=== PATIENT | female | born 1985 | race Caucasian/White ===

== ENCOUNTER 2020-06-05 09:51 | Inpatient (IN) | payer BC, SELFPAY ==
--- NOTE | 2020-05-09 13:07 | PC.NURSE ---
VERIFIED WITH OR SCHEDULE AND PATIENT --C/S ON 06/05/20 AT 1200 PATIENT INSTRUCTED TO BE IN OB AT 10 AM SO LABS CAN BE DRAWN BEFORE SURGERY
--- NOTE | 2020-06-01 14:05 | HP_ITS ---
DATE OF SERVICE: 06/05/2020 Surgery is scheduled for June 05. HISTORY OF PRESENT ILLNESS: The patient is 35-year-old G2, P1-0-0-1 at 39 weeks and 2 days gestation with a history of prior , who is coming in for an elective repeat . Her has been uncomplicated. She has occasional contractions. No vaginal bleeding. No leakage of fluid and is feeling normal movement. MEDICAL HISTORY: Negative. CURRENT MEDICATIONS: vitamin. ALLERGIES: NO KNOWN DRUG ALLERGIES. SURGICAL HISTORY: Low-transverse x1. Baby weighed 8 pounds 10 ounces. SOCIAL HISTORY: Negative for tobacco, alcohol, or drug use. GYNECOLOGIC HISTORY: Negative for abnormal Pap or STD. REVIEW OF SYSTEMS: Negative. PHYSICAL EXAMINATION: VITAL SIGNS: She weighs 188, blood pressure 117/72. GENERAL: No apparent distress. HEART: Regular rate and rhythm. LUNGS: Clear to auscultation. ABDOMEN: Gravid, soft, nontender, nondistended. EXTREMITIES: Nontender with trace edema. ASSESSMENT AND PLAN: 1. G2, P1-0-0-1 at 39 weeks and 2 days with history of prior and declines trial of labor and wants a repeat , so plan is for repeat . 2. status is reassuring. 3. GBS is negative. 4. Advanced maternal age. She did have a normal NIPT showing a female fetus with normal chromosome analysis. D I MT: Kan
[2020-06-05] VITALS (44 sets, daily range): BP systolic 93–119; BP diastolic 39–64; PULSE 46–147; RESP 12–18; TEMP 36.2–36.9; O2SAT 82–100; BMI 31.4
[2020-06-05 10:57] LABS: Basophils Absolute Auto 0.1 K/mm3 (0.0-0.1); Basophils Percent Auto 0.5 % (0.2-1.2); Eosinophils Absolute Auto 0.1 K/mm3 (0-0.3); Eosinophils Percent Auto 0.5 % (0-4.4); Hematocrit 34.5 % (37.0-47.0); Hemoglobin 11.6 g/dL (12.0-15.0); Immature Granulocyte Absolute 0.08 K/mm3 (0.00-0.031); Immature Granulocyte Percent A 0.6 % (0-0.5); Lymphocytes Absolute Auto 2.62 K/mm3 (0.9-3.2); Lymphocytes Percent Auto 20.3 % (18.3-44.2); Mean Corpuscular HGB Conc 33.6 g/dl (32-36); Mean Corpuscular Hemoglobin 30.1 pg (26-34); Mean Corpuscular Volume 89.6 fl (80-100); Mean Platelet Volume 10.4 fl (7.4-10.4); Monocytes Absolute Auto 1.1 K/mm3 (0.1-0.6); Monocytes Percent Auto 8.3 % (2.6-8.5); Neutrophils Percent Auto 69.8 % (45.5-73.1); Platelet Count Result 320 k/mm3 (150-375); Red Blood Count 3.85 M/mm3 (4.2-5.4); White Blood Count 12.9 K/mm3 (4.5-10.0)
[2020-06-05] MEDS: LACTATED RINGERS 1,000 ML 125 ML IV CONT ×2 (10:59→11:39)
--- NOTE | 2020-06-05 11:23 | WPDANESEPPF ---
Anes - Initial Pre Proc Eval Procedure: Operation Date: 06/05/20 12:00 Proposed Procedures p Repeat Section - Alma Rosa Salgado MD Date/Time: 06/05/20 11:23 Surgeon: Alma Rosa Salgado MD Pre Op Diagnosis: Repeat Patient Data Age: 35 Gender: F Height: 5 ft 4 in Weight: 83 kg Last Vital Signs Pulse 68 06/05/20 11:11 BP 119/60 06/05/20 11:11 Allergies Allergy/AdvReac Type Severity Reaction Status Date / Time No Known Allergies Allergy Unknown Verified 05/09/20 12:46 Home Medications Medication Instructions Recorded Confirmed Type PNV cmb#95-ferrous fumarate-FA 1 tablet PO DAILY 05/09/20 05/09/20 History [] Laboratory Tests 06/05/20 06/05/20 10:49 10:49 WBC 12.9 K/mm3 H K/mm3 (4.5-10.0) RBC 3.85 M/mm3 L M/mm3 (4.2-5.4) Hgb 11.6 g/dL L g/dL (12.0-15.0) Hct 34.5 % L % (37.0-47.0) MCV 89.6 fl fl (80-100) MCH 30.1 pg pg (26-34) MCHC 33.6 g/dl g/dl (32-36) RDW 13.0 % % (11.5-14.5) Plt Count 320 k/mm3 k/mm3 (150-375) MPV 10.4 fl fl (7.4-10.4) Immature Gran % (Auto) 0.6 % H % (0-0.5) Neut % (Auto) 69.8 % % (45.5-73.1) Lymph % (Auto) 20.3 % % (18.3-44.2) [place] % (Auto) 8.3 % % (2.6-8.5) Eos % (Auto) 0.5 % % (0-4.4) Baso % (Auto) 0.5 % % (0.2-1.2) Lymph # (Auto) 2.62 K/mm3 K/mm3 (0.9-3.2) [place] # (Auto) 1.1 K/mm3 H K/mm3 (0.1-0.6) Eos # (Auto) 0.1 K/mm3 K/mm3 (0-0.3) Baso # (Auto) 0.1 K/mm3 K/mm3 (0.0-0.1) Abs Immat Gran (auto) 0.08 K/mm3 H K/mm3 (0.00-0.031) Absolute Neuts (auto) 9.0 K/mm3 H K/mm3 (1.3-6.7) Absolute Nucleated RBC 0.0 K/mm3 K/mm3 (0.0-0.012) Nucleated RBC % 0.0 % % (0.0-0.2) RPR Pending Patient hx anesthesia problems: none Family hx anesthesia problems: none PMFSH Family History Family History Mother Hypertension Diabetes mellitus Grandparent Diabetes mellitus Social History Social History Smoking status: Never smoker Second hand tobacco smoke exposure: Yes Substance use: never Spiritual care concerns: No Anes - Eval Final PreProcedure Day of Procedure 06/05/20 11:23 Patient weight: overweight Heart: regular rate and rhythm Lungs: clear to auscultation Airway: Mallampati scale class II Neurological: alert and oriented Last oral intake: >/= 8 hours ASA classification: II Emergent: no Anesthetic plan: proceed Anesthesia type and monitoring: regional spinal and standard monitoring Informed Consent: The patient's anesthetic plan and its attendant risks and benefits were discussed with the patient/family/POA. Questions were solicited and answers provided to the satisfaction of the patient/family/POA.
[2020-06-05] MEDS: ceFAZolin 2 GM/D5W 50 ML 2 GM/50 ML BAG IVPB (11:42)
--- NOTE | 2020-06-05 11:53 | WPDHPUPDATE1 ---
History and Physical Update Update Date/Time: 06/05/20 11:53 History and Physical has been reviewed, including an updated exam of the patient. There are NO changes in the patient's condition. Risks, benefits, and alternatives have been discussed and questions answered. Patient agrees to proceed with procedure.
--- NOTE | 2020-06-05 12:48 | PM.OP ---
Procedure Note - Brief Procedure Note - Brief Date of procedure: 06/05/20 Pre-op diagnosis: Repeat Post-op diagnosis: same Procedure performed: Repeat LTCS Anesthesia: spinal Surgeon: Alma Rosa Salgado MD Estimated blood loss (mL): 200 Drains: Yes (Root) Packing: No Pathology: none sent Complications: No immediate complications Condition: stable Disposition: PACU Findings: Female infant, cephalic, Apgars 8/9, 7# 8 oz; normal uterus, tubes, ovaries
[2020-06-05] MEDS: OXYTOCIN 30 UNITS/NS 500 ML 30 UNITS/500 ML BAG 125 UNITS IV CONT (13:43)
[2020-06-05] MEDS: KETOROLAC 30 MG/ML VIAL (*BKC) IV PUSH ×2 (16:14→22:27)
--- NOTE | 2020-06-05 18:03 | OP_ITS ---
DATE OF PROCEDURE: 06/05/2020 PREOPERATIVE DIAGNOSIS: Intrauterine at 39 weeks and 2 days with history of prior . POSTOPERATIVE DIAGNOSES: Intrauterine at 39 weeks and 2 days with history of prior . PROCEDURE PERFORMED: Repeat low transverse section. ANESTHESIA: Spinal. ESTIMATED BLOOD LOSS: 200 mL. COMPLICATIONS: None. FINDINGS: Female , cephalic presentation. Apgars 8 and 9. Weight 7 pounds 8 ounces. Normal uterus, tubes, and ovaries. INDICATIONS: A 35-year-old, G2, P1, at 39 weeks and 2 days gestation with history of prior , had expressed a desire throughout her for repeat and had signed consent after the risks, benefits, complications, and alternatives were discussed. DESCRIPTION OF PROCEDURE: She was taken to the operating room where spinal anesthesia was obtained and found to be adequate. She was prepared and draped in the normal sterile fashion in the dorsal supine position with a leftward tilt. A Pfannenstiel skin incision was made over her prior incision, excising elliptical fashion and the incision was carried down to the underlying layer of fascia with the scalpel. The fascia was incised in the midline with scalpel and extended laterally with Cullen scissors. The underlying rectus muscles were dissected off bluntly and sharply. Rectus muscles were in the midline. The peritoneum was entered bluntly and extended inferiorly and superiorly with good visualization of the bladder. The bladder blade was inserted. The vesicouterine peritoneum was tented up and entered sharply with Metzenbaum and extended sharply. The bladder flap was created sharply. The bladder blade was reinserted. The lower uterine segment was incised in a transverse fashion with scalpel and digitally stretched in a cephalocaudad direction. The membranes were ruptured with clear fluid noted. The infant's head was delivered atraumatically. The shoulders and body were delivered easily. The cord was clamped x2 and cut. The was passed to the awaiting nurse. Cord gas and cord blood were obtained. The placenta was manually extracted. The uterus was exteriorized and cleared of all clots and debris. The uterine incision was closed in 0 Vicryl in a running locked fashion. Incision was hemostatic, so the uterus was returned to the abdomen. The gutters were cleared of all clots and debris. The uterine incision was reinspected and noted to be hemostatic. The rectus muscles were reapproximated in the midline using [id number] 0 Vicryl suture. The fascia was then closed using 0 Vicryl in a running fashion. Subcutaneous tissue was irrigated. All bleeding points were cauterized and the skin was closed using Insorb absorbable maria teresa. She tolerated the procedure well. Sponge, lap, needle, and instrument counts were correct x2 and she was taken to the recovery room in stable condition. Mayra I MT: Kan
[2020-06-05] MEDS: ONDANSETRON INJ 4 MG/2 ML VIAL IV PUSH (19:00)
[2020-06-05] MEDS: DEXTROSE 5%/0.45% SOD CHL 1,000 ML 125 ML IV CONT (19:11)
[2020-06-06] MEDS: TETANUS,DIPHTHERIA,AC PERTUSSIS ADULT (0.5 ML) BOOSTRIX IM (04:08)
[2020-06-06 04:20] VITALS: BP 86/46; PULSE 72; RESP 13; TEMP 36.9; O2SAT 96
[2020-06-06 05:09] LABS: Basophils Percent Auto 0.3 % (0.2-1.2); Eosinophils Absolute Auto 0.1 K/mm3 (0-0.3); Eosinophils Percent Auto 0.7 % (0-4.4); Hematocrit 33.7 % (37.0-47.0); Hemoglobin 11.1 g/dL (12.0-15.0); Immature Granulocyte Absolute 0.07 K/mm3 (0.00-0.031); Immature Granulocyte Percent A 0.5 % (0-0.5); Lymphocytes Absolute Auto 2.25 K/mm3 (0.9-3.2); Lymphocytes Percent Auto 15.6 % (18.3-44.2); Mean Corpuscular HGB Conc 32.9 g/dl (32-36); Mean Corpuscular Hemoglobin 29.7 pg (26-34); Mean Corpuscular Volume 90.1 fl (80-100); Mean Platelet Volume 10.4 fl (7.4-10.4); Monocytes Absolute Auto 0.8 K/mm3 (0.1-0.6); Monocytes Percent Auto 5.8 % (2.6-8.5); Neutrophils Absolute Auto 11.1 K/mm3 (1.3-6.7); Neutrophils Percent Auto 77.1 % (45.5-73.1); Platelet Count Result 252 k/mm3 (150-375); Red Blood Count 3.74 M/mm3 (4.2-5.4); White Blood Count 14.4 K/mm3 (4.5-10.0)
[2020-06-06] MEDS: MULTIVIT/MIN/PREN/FOL AC/IRON TABLET 1 TAB PO (07:24)
[2020-06-06] MEDS: IBUPROFEN 600 MG TABLET PO ×3 (07:24→19:30)
[2020-06-06] MEDS: DOCUSATE SODIUM 100 MG CAPSULE PO ×2 (07:24→15:54)
[2020-06-06 07:25] LABS: Rapid Plasma Reagin Non-Reactive (NonReactive)
--- NOTE | 2020-06-06 07:32 | PM.OBPNVD ---
OB - PN: Subj Subjective Date/time seen: 06/06/20 07:32 Patient comments: no complaints baby status: doing well OB - PN: Obj Data Labs CBC & Chem 7: 06/06/20 04:06 Labs: Laboratory Results - last 24 hr 06/05/20 06/05/20 06/05/20 10:49 10:49 10:49 WBC 12.9 H RBC 3.85 L Hgb 11.6 L Hct 34.5 L MCV 89.6 MCH 30.1 MCHC 33.6 RDW 13.0 Plt Count 320 MPV 10.4 Immature Gran % (Auto) 0.6 H Neut % (Auto) 69.8 Lymph % (Auto) 20.3 [place] % (Auto) 8.3 Eos % (Auto) 0.5 Baso % (Auto) 0.5 Lymph # (Auto) 2.62 [place] # (Auto) 1.1 H Eos # (Auto) 0.1 Baso # (Auto) 0.1 Abs Immat Gran (auto) 0.08 H Absolute Neuts (auto) 9.0 H Absolute Nucleated RBC 0.0 Nucleated RBC % 0.0 RPR Non-reactive Blood Type A Positive Antibody Screen Negative 06/06/20 04:06 WBC 14.4 H RBC 3.74 L Hgb 11.1 L Hct 33.7 L MCV 90.1 MCH 29.7 MCHC 32.9 RDW 13.0 Plt Count 252 MPV 10.4 Immature Gran % (Auto) 0.5 Neut % (Auto) 77.1 H Lymph % (Auto) 15.6 L [place] % (Auto) 5.8 Eos % (Auto) 0.7 Baso % (Auto) 0.3 Lymph # (Auto) 2.25 [place] # (Auto) 0.8 H Eos # (Auto) 0.1 Baso # (Auto) 0.0 Abs Immat Gran (auto) 0.07 H Absolute Neuts (auto) 11.1 H Absolute Nucleated RBC 0.0 Nucleated RBC % 0.0 RPR Blood Type Antibody Screen OB - PN A/P Plan day: 1 Plan: discharge home Time Spent With Patient Time: Total time spent is greater than 50% in coordination of care (as documented) at patient's floor/unit and/or counseling patient: Review of Systems Review of Systems: All systems reviewed & are unremarkable except as noted in HPI and below Exam Const: General: comfortable Resp: Effort & Inspection: normal respiratory effort Psych: Appearance: grossly normal Affect: normal affect Attitude: cooperative Judgement: Good judgement present (Psych)
[2020-06-06 07:40] VITALS: BP 93/49; PULSE 66; RESP 18; TEMP 37.3; O2SAT 98
--- NOTE | 2020-06-06 07:47 | WPDANLDPN2 ---
Anes-Prog Note L&D Date/Time: 06/06/20 07:47 Comfortable throughout: section Neuraxial method: spinal Epidural/Spinal procedure site: clean & non-tender Neuro status: Neuro function grossly intact. Cardiovascular status: normal Respiratory status: normal Airway patency: baseline Mental status: baseline Post-Op hydration status: normal Vital Signs: Last Vital Signs Temp 36.9 C 06/06/20 04:20 Pulse 72 06/06/20 04:20 Resp 13 06/06/20 04:20 BP 86/46 L 06/06/20 04:20 Pulse Ox 96 06/06/20 04:20 I/O: Intake & Output 06/05/20 06/05/20 06/06/20 15:59 23:59 07:59 Intake Total 1850 350 Output Total 300 1250 1000 Balance 1550 -900 -1000 Post-procedural complaints: none Patient feedback: Patient satisfied with anesthetic care.
--- NOTE | 2020-06-06 07:47 | WPDANLDNPN2 ---
Anes-Prog Note L&D-Neuraxial Date/Time: 06/06/20 07:47 Neuraxial medications: intrathecal PF morphine Opiod-related complaints: none Patient feedback: Patient satisfied with post-operative pain management.
--- NOTE | 2020-06-06 08:23 | PC.NURSE ---
Mother verbalizes she is able to independently latch with appropriate positioning/alignment. She denies any nipple discomfort, is feeding as required and waking to feed if needed. Infant is currently meeting outcomes for weight, output, jaundice and feeding frequencies. Mother states she does not require feeding assist/education at this time. Reviewed resources in the Mom/Baby guide. Instructed mother to call out for future feedings if assistance is needed.
[2020-06-06 12:20] VITALS: BP 98/46; PULSE 64; RESP 18; TEMP 37.1; O2SAT 97
[2020-06-06] MEDS: LANOLIN (LANSINOH) 7.5 GM CREAM 1 APPLIC TOPICAL (15:54)
[2020-06-06] MEDS: SIMETHICONE 80 MG TAB.CHEW PO (15:54)
[2020-06-06 19:40] VITALS: BP 106/48; PULSE 72; RESP 13; TEMP 36.6; O2SAT 98
[2020-06-07] MEDS: IBUPROFEN 600 MG TABLET PO ×4 (02:44→21:30)
--- NOTE | 2020-06-07 07:41 | PM.OBPNVD ---
OB - PN: Subj Subjective Date/time seen: 06/07/20 07:41 Patient comments: no complaints, pain well controlled, tolerating diet, flatus present and other (Ambulating and voiding without problems. Lochia similar to menses) baby status: doing well OB - PN: Obj Data Labs CBC & Chem 7: 06/06/20 04:06 OB - PN A/P Plan day: 2 (s/p C section, doing well) Plan: routine care Time Spent With Patient Time: Total time spent is greater than 50% in coordination of care (as documented) at patient's floor/unit and/or counseling patient: Exam Const: General: no acute distress Resp: Auscultation: clear to auscultation bilaterally Cardio: Rate: regular rate Rhythm: regular rhythm GI: Inspection: non-distended, incision (Intact without erythema, drainage, or induration) and other (Fundus firm and nontender below umbilicus) GI Palp: Yes abdominal tenderness (appropriate) and Yes Soft to palpation Extrem: General: no edema
[2020-06-07 08:20] VITALS: BP 98/50; PULSE 69; RESP 18; TEMP 36.8; O2SAT 99
[2020-06-07] MEDS: MULTIVIT/MIN/PREN/FOL AC/IRON TABLET 1 TAB PO (09:07)
[2020-06-07] MEDS: DOCUSATE SODIUM 100 MG CAPSULE PO ×2 (09:07→15:53)
[2020-06-07 16:40] VITALS: PULSE 67; O2SAT 97
[2020-06-07 21:30] VITALS: BP 111/51; PULSE 64; RESP 15; TEMP 36.7; O2SAT 99
[2020-06-08] MEDS: IBUPROFEN 600 MG TABLET PO (03:58)
--- NOTE | 2020-06-08 07:38 | PM.OBPNVD ---
OB - PN: Subj Subjective Date/time seen: 06/08/20 07:38 Patient comments: no complaints, pain well controlled, tolerating diet, flatus present and other (Lochia less than menses. Ambulating and voiding without problems) baby status: doing well OB - PN: Obj Data Labs CBC & Chem 7: 06/06/20 04:06 OB - PN A/P Plan day: 3 (s/p section, doing well and ready to be discharged home) Plan: routine care, discharge home and other (Follow up in office in 1 week) Time Spent With Patient Time: Total time spent is greater than 50% in coordination of care (as documented) at patient's floor/unit and/or counseling patient: Exam Const: General: no acute distress Resp: Auscultation: clear to auscultation bilaterally Cardio: Rate: regular rate Rhythm: regular rhythm GI: Inspection: non-distended, incision (Intact without erythema, drainage, or induration) and other (Fundus firm and nontender below umbilicus) GI Palp: Yes abdominal tenderness (appropriate) and Yes Soft to palpation Extrem: General: no edema
[2020-06-08] MEDS: MULTIVIT/MIN/PREN/FOL AC/IRON TABLET 1 TAB PO (07:56)
[2020-06-08] MEDS: DOCUSATE SODIUM 100 MG CAPSULE PO (07:56)
--- NOTE | 2020-06-08 08:00 | PC.NURSE ---
Patient instructed on viewing the discharge video Mother & Baby Care, The First Two Weeks . Patient was given the opportunity and encouraged to ask questions. Patient verbalized understanding of information shared and has been given the mother/baby guide for home reference.
[2020-06-08 09:25] VITALS: BP 103/49; PULSE 62; RESP 16; TEMP 36.7; O2SAT 98
--- NOTE | 2020-06-08 20:06 | DS_ITS ---
DATE OF DISCHARGE: 06/08/2020 ADMISSION DIAGNOSIS: Intrauterine at 39 weeks and 2 days with history of prior . DISCHARGE DIAGNOSIS: Status post repeat low-transverse section. PROCEDURE PERFORMED: on June 05. Followup is in the office on Friday, June 12. DISCHARGE MEDICATIONS: Include vitamin, [place], and ibuprofen p.r.n. HOSPITAL COURSE: A 35-year-old G2, P1-0-0-1 at 39 weeks and 2 days with history of prior , had expressed a desire throughout her for repeat , so she was admitted on the morning of June 05 for scheduled repeat . Her surgery was uneventful. She had a female weighing 7 pounds 8 ounces and an estimated blood loss of 200 mL. Her postoperative course has been uneventful. She is meeting all postoperative milestones and wants to be discharged home on June 08, postoperative day #3. Her female infant is doing well with no apparent medical problems. Her hemoglobin postoperatively was 11.1, so she will follow up with the appointment on June 12 and the medications as noted above. Mayra I MT: Kan
[2020-06-09 09:22] VITALS: BP 118/76; PULSE 79; RESP 22; TEMP 36.2; O2SAT 98
== END 2020-06-08 10:03 | disposition home or self-care (01) | DRG 788 ==
LOC: ANHLDR 10:25 → ANHOB2 15:31
PROVIDERS: Admitting Provider Obstetrics & Gynecology; Visit Provider Obstetrics & Gynecology
PROC: 10D00Z1 Extraction of Products of Conception, Low, Open Approach (ICD-10-PCS; CPT 59514; principal; 2020-06-05 12:00)
DX: O34.211 Maternal care for low transverse scar from previous cesarean delivery (principal); Z3A.39 39 weeks gestation of pregnancy; Z37.0 Single live birth
CPT/HCPCS: 36415; 85025; 86592; 86850; 86900; 86901; 90715; A9270; J0131; J0690; J1200; J1885; J2274; J2370; J2405; J2590; J7120

== ENCOUNTER 2021-03-30 19:54 | Emergency (ER) | payer BC, SELFPAY ==
--- NOTE | ~2021-03-30 | US_ITS ---
US pelvic complete w TV DATE: 03/31/2021 00:45 INDICATION: Left adnexal pain. Cramping. TECHNIQUE: Real-time imaging via transabdominal and transvaginal approaches COMPARISON: None FINDINGS: The uterus measures 8.7 cm height, 6.1 cm transverse and 5 cm AP dimension. Central endomet rial echo complex measures 8.3 mm. Right ovary measures 3.1 x 2.6 x 2.0 cm; there is vascular flow to the right ovary on Doppler and co sander flow evaluation. There is vascular flow to the left ovary on color flow imaging and Doppler analysis.. No pelvic mass or abnormal pelvic fluid collection is evident. IMPRESSION: No significant abnormality. No evidence of ovarian torsion Reviewed, dictated and finalized at [facility]. Reviewed, dictated and finalized at [facility].
[2021-03-30 20:05] VITALS: BP 133/48; PULSE 99; RESP 16; TEMP 36.6; O2SAT 100
[2021-03-30] MEDS: KETOROLAC 30 MG/ML VIAL (*BKC) IV PUSH (22:06)
[2021-03-30] MEDS: ONDANSETRON INJ 4 MG/2 ML VIAL IV PUSH (22:06)
--- NOTE | 2021-03-30 22:12 | ED.GENADULT ---
HPI - General Adult General Chief complaint: [employer] SEAL Stated complaint: abd pain Time Seen by Provider: 03/30/21 20:23 History of Present Illness HPI narrative: Patient is a 28-year-old female who presents to the ER with lower abdominal cramping and pain. Patient is on day one of her menstrual cycle and reports cramps are worse than typical. This is happened each of her last two menstrual cycles. She has not discussed this with her financial risk manager. She has no vaginal discharge. No concern for STI. Patient is without urinary symptoms. Related Data Home Medications Medication Instructions Recorded Confirmed PNV cmb#95-ferrous fumarate-FA 1 tablet PO DAILY 05/09/20 11/06/20 [] Allergies Allergy/AdvReac Type Severity Reaction Status Date / Time No Known Allergies Allergy Unknown Verified 11/06/20 08:55 Review of Systems Review of Systems: All systems reviewed & are unremarkable except as noted in HPI and below Constitutional: Constitutional: Denies chills, Denies fever(s) and Denies weakness Gastrointestinal: Gastrointestinal: Reports abdominal pain, Denies constipation, Denies diarrhea and Denies vomiting Genitourinary: Genitourinary: Denies abnormal vaginal bleeding, Denies nocturia, Denies dysuria, Reports pelvic pain and Denies vaginal discharge [facility] Past Medical History Medical History delivery delivered 06/05/20 Family History Family History Mother Hypertension Diabetes mellitus Grandparent Diabetes mellitus Social History Social History Smoking status: Never smoker Second hand tobacco smoke exposure: Yes Substance use: never Spiritual care concerns: No Exam Narrative: Exam Narrative: GENERAL: Well-appearing, well-nourished, and in no acute distress. HEAD: Normocephalic, atraumatic. ENT: Mucous membranes moist. CHEST: Clear to auscultation. No respiratory distress. HEART: Regular rate and rhythm. Normal peripheral pulses. ABDOMEN: Soft, TTP suprapubic region w/o guarding, nondistended. EXTREMITIES: Normal range of motion. No edema. NEURO: Alert and oriented x3. PSYCH: Normal mood and affect. Course Course Emergency Course: Sx improved. Unremarkable US pelvis. Recommend f/u with primary ship surveyor. Pt verbalized understading. Vital Signs Vital signs: Vital Signs Temperature 98 F 03/30/21 20:05 Pulse Rate 99 03/30/21 20:05 Respiratory Rate 16 03/30/21 20:05 Blood Pressure 133/48 L 03/30/21 20:05 Pulse Oximetry 100 03/30/21 20:05 Temperature 99.5 F 03/30/21 23:54 Pulse Rate 84 03/30/21 23:54 Respiratory Rate 18 03/30/21 23:54 Blood Pressure 95/47 L 03/30/21 23:54 Pulse Oximetry 96 03/30/21 23:54 Medical Decision Making Vital Signs Vital Signs: Vital Signs Temperature 98 F 03/30/21 20:05 Pulse Rate 99 03/30/21 20:05 Respiratory Rate 16 03/30/21 20:05 Blood Pressure 133/48 L 03/30/21 20:05 Pulse Oximetry 100 03/30/21 20:05 Temperature 99.5 F 03/30/21 23:54 Pulse Rate 84 03/30/21 23:54 Respiratory Rate 18 03/30/21 23:54 Blood Pressure 95/47 L 03/30/21 23:54 Pulse Oximetry 96 03/30/21 23:54 Lab Data Result diagrams: 03/30/21 22:21 03/30/21 22:21 Labs: Lab Results 03/30/21 03/30/21 03/30/21 Range/Units 22:21 22:21 22:31 WBC 14.1 H (4.5-10.0) K/mm3 RBC 4.17 L (4.2-5.4) M/mm3 Hgb 11.9 L (12.0-15.0) g/dL Hct 35.9 L (37.0-47.0) % MCV 86.1 (80-100) fl MCH 28.5 (26-34) pg MCHC 33.1 (32-36) g/dl RDW 12.5 (11.5-14.5) % Plt Count 324 (150-375) k/mm3 MPV 9.3 (7.4-10.4) fl Immature Gran % (Auto) 0.4 (0-0.5) % Neut % (Auto) 85.7 H (45.5-73.1) % Lymph % (Auto) 8.1 L (18.3-44.2) % [place] % (Auto) 5.2 (2.6-8.5) % Eos % (Auto) 0.2 (0-4.4) % Baso
[2021-03-30 22:26] LABS: Basophils Absolute Auto 0.1 K/mm3 (0.0-0.1); Basophils Percent Auto 0.4 % (0.2-1.2); Eosinophils Percent Auto 0.2 % (0-4.4); Hematocrit 35.9 % (37.0-47.0); Hemoglobin 11.9 g/dL (12.0-15.0); Immature Granulocyte Absolute 0.05 K/mm3 (0.00-0.031); Immature Granulocyte Percent A 0.4 % (0-0.5); Lymphocytes Absolute Auto 1.15 K/mm3 (0.9-3.2); Lymphocytes Percent Auto 8.1 % (18.3-44.2); Mean Corpuscular HGB Conc 33.1 g/dl (32-36); Mean Corpuscular Hemoglobin 28.5 pg (26-34); Mean Corpuscular Volume 86.1 fl (80-100); Mean Platelet Volume 9.3 fl (7.4-10.4); Monocytes Absolute Auto 0.7 K/mm3 (0.1-0.6); Monocytes Percent Auto 5.2 % (2.6-8.5); Neutrophils Absolute Auto 12.1 K/mm3 (1.3-6.7); Neutrophils Percent Auto 85.7 % (45.5-73.1); Platelet Count Result 324 k/mm3 (150-375); Red Blood Count 4.17 M/mm3 (4.2-5.4); Red Cell Distribution Width 12.5 % (11.5-14.5); White Blood Count 14.1 K/mm3 (4.5-10.0)
[2021-03-30 22:36] LABS: Anion Gap 6 mmol/L (8-16); Blood Urea Nitrogen 13 mg/dL (7-17); Calcium 9.2 mg/dL (8.4-10.2); Carbon Dioxide 26 mmol/L (22-30); Chloride 105 mmol/L (98-107); Estimated CRCL calculation 90 ml/min; Estimated Glomerular Filt Rate > 60; Glucose 103 mg/dL (65-105); Sodium 137 mmol/L (137-145)
[2021-03-30 22:40] VITALS: TEMP 37.5
[2021-03-30 22:41] LABS: Add Urine Microscopic? YES; Appearance Urine Clear (Clear); Bacteria Urine Trace /hpf; Bilirubin Urine Negative (Negative); Blood Urine 2+ (Negative); Color Urine Straw (Yellow); Glucose Urine UA Negative (Negative); Ketones Urine Negative (Negative); Leukocyte Esterase Ur Negative LEU/UL (Negative); Mucus Urine Rare /lpf; Nitrate Urine Negative (Negative); Protein Urine Negative (Negative); Specific Grav Ur 1.012 (1.001-1.035); Squamous Epithelial Cell Urine Rare /hpf (Few); Urobilinogen Urine Negative mg/dL (<2.0); WBC Urine 0-3 /hpf
[2021-03-30 23:54] VITALS: BP 95/47; PULSE 84; RESP 18; TEMP 37.5; O2SAT 96
[2021-03-31 01:51] VITALS: BP 103/53; PULSE 80; RESP 16; O2SAT 98
== END 2021-03-31 01:51 | disposition home or self-care (01) ==
PROVIDERS: Emergency Provider Emergency Medicine
DX: R10.2 Pelvic and perineal pain (principal)
CPT/HCPCS: 36415; 76830; 76856; 80048; 81001; 81025; 85025; 96374; 96375; 99284; J1885; J2405

== ENCOUNTER 2023-02-21 09:10 | Outpatient (CLI) | payer OTHER, SELFPAY ==
--- NOTE | ~2023-02-21 | US_ITS ---
Pelvic ultrasound. Clinical History: Hypertrophy of uterus Technique: Realtime transabdominal and transvaginal scanning of the pelvis was performed. Color flow Doppler and Doppler spectral analysis were performed. Findings: The uterus is anteverted, and measures 9.2 x 3.6 x 5.8 cm. The endometrial stripe has a th ickness of 5 mm. No focal mass is identified. The right ovary measures 3.9 x 1.8 x 3.1 cm. No significant right ovarian or adnexal mass is seen. The left ovary measures 2.1 x 1.1 x 1.9 cm. No significant left ovarian or adnexal mass is seen. Vascular flow present in both ovaries on Doppler spectral analysis. There is no evidence of free fluid in the cul de sac. Impression: Unremarkable pelvic ultrasound. Reviewed, dictated and finalized at [facility]. Impression: Unremarkable pelvic ultrasound.
== END 2023-02-21 09:11 | disposition home or self-care (01) ==
PROVIDERS: Visit Provider Registered Nurse
DX: N85.2 Hypertrophy of uterus (principal)
CPT/HCPCS: 76830; 76856

== ENCOUNTER 2023-02-26 08:57 | Outpatient (CLI) | payer OTHER, SELFPAY ==
--- NOTE | ~2023-02-26 | MM_ITS ---
EXAMINATION: MM screening jordan BI w redd HISTORY: Screening TECHNIQUE: Craniocaudal and mediolateral oblique 3-D tomosynthesis images were obtained and synthetic 2-D images were generated. CAD analysis was submitted and interpreted. COMPARISON: No prior mammogram is available for comparison at this institution. BREAST PARENCHYMAL COMPOSITION: The breasts are extremely dense, which lowers the sensitivity of mamm ography FINDINGS: There is no evidence of suspicious mass, calcification, or architectural distortion to sugg est malignancy in either breast. There has been no suspicious interval change. IMPRESSION: 1. No mammographic evidence of malignancy. 2. Recommend routine screening mammography in one year. BI-RADS Category 1: Negative Reviewed, dictated and finalized at [facility].
== END 2023-02-26 08:58 | disposition home or self-care (01) ==
LOC: ANHIMG 08:59
PROVIDERS: Visit Provider Registered Nurse
DX: Z12.31 Encounter for screening mammogram for malignant neoplasm of breast (principal)
CPT/HCPCS: 77063; 77067

== ENCOUNTER 2024-07-02 07:39 | Outpatient (CLI) | payer OTHER, SELFPAY ==
--- NOTE | ~2024-07-02 | MM_ITS ---
EXAMINATION: MM screening jordan BI w redd HISTORY: Screening TECHNIQUE: Craniocaudal and mediolateral oblique 3-D tomosynthesis images were obtained and synthetic 2-D images were generated. CAD analysis was submitted and interpreted. COMPARISON: 02/26/2023 BREAST PARENCHYMAL COMPOSITION: Dense: The breasts are extremely dense, which lowers the sensitivity of mammography. FINDINGS: There is no evidence of suspicious mass, calcification, or architectural distortion to sugg est malignancy in either breast. There has been no suspicious interval change. IMPRESSION: 1. No mammographic evidence of malignancy. 2. Recommend routine screening mammography in one year. BI-RADS Category 1: Negative Reviewed, dictated and finalized at [facility].
== END 2024-07-02 07:40 | disposition home or self-care (01) ==
PROVIDERS: Visit Provider Nurse Practitioner Family
DX: Z12.31 Encounter for screening mammogram for malignant neoplasm of breast (principal)
CPT/HCPCS: 77063; 77067